=== PATIENT | female | born 1990 | race Caucasian/White ===

== ENCOUNTER 2024-06-29 22:48 | Emergency (ER) | payer MEDICAID, SELFPAY ==
[2024-06-29 22:53] VITALS: BP 138/77; PULSE 82; RESP 20; TEMP 37.2; O2SAT 99; BMI 23.4
--- NOTE | 2024-06-29 23:03 | W.ED.ABDPA2 ---
HPI - Abdominal Pain General: Chief Complaint: Abdominal Pain Stated Complaint: ABD PAIN Time Seen by Provider: 06/29/24 22:50 History of Present Illness: Patient presents to the ER [facility] with complaint of right lower quadrant abdominal pain that sharp stabbing in nature its intermittent. It started about 8 PM tonight. Patient is never had this pain before she does not have anything that will make it come on or go away but does this on its own. Patient's only abdominal surgery is a tubal. Patient denies any nausea vomiting diarrhea constipation pain burning frequency with urination. Related Data Previous Rx's ?Medication ?Instructions ?Recorded clotrimazole 1 % topical cream 1 applic topical BID 2 weeks #15 06/11/24 grams hydroxyzine HCl 25 mg tablet 25 mg PO BID PRN anxiety or 06/20/24 allergies #60 tabs magnesium L-lactate 84 mg 84 mg PO .QHS PRN sleep and muscle 06/20/24 tablet,extended release cramps #30 tabs Allergies Allergy/AdvReac Type Severity Reaction Status Date / Time oxycodone (From OxyContin) Allergy Intermediate hives Verified 06/20/24 09:09 Review of Systems General: Reports: 10 or more systems reviewed and unremarkable except in HPI and below PFSH ED PFSH: Medical History Situational anxiety Insomnia Muscle cramps Social History Smoking and tobacco/nicotine status: current every day tobacco/nicotine user (vape) Physical Exam Const: COMMON NORMALS: no acute distress, average body habitus, patient oriented x3, no limitations, healthy appearing, alert and well nourished HENMT: COMMON NORMALS: normocephalic, atraumatic, hearing grossly normal bilaterally, external ears normal, Normal external nose present, moist oral mucous membranes and oropharynx normal HEAD & SCALP: normocephalic and atraumatic NOSE: Normal external nose present EXTERNAL EAR: Yes external ears normal Neck/C-Spine: COMMON NORMALS: no JVD Chest: COMMONS NORMALS: normal inspection of the chest and normal palpation of entire chest wall Resp: COMMON NORMALS: normal respiratory effort, No retractions, No use of accessory muscles and clear to auscultation bilaterally AUSCULTATION: clear to auscultation bilaterally Cardio: COMMON NORMALS: no JVD, regular rate, regular rhythm, S1 normal heart sound present, S2 normal heart sound present, No gallops present (Cardio), No clicks present (Cardio), No murmurs present (Cardio) and No rub (Cardio) RATE: regular rate RHYTHM: regular rhythm HEART SOUNDS: S1 normal heart sound present and S2 normal heart sound present GI: COMMON NORMALS: Normal to inspection, nondistended, normoactive bowel sounds present, Soft to palpation, No hepatosplenomegaly present and no masses; negative for non-tender (Tender to palpation over right lower quadrant) PALPATION: Yes Soft to palpation and Yes No hepatosplenomegaly present Neuro: COMMON NORMALS: patient oriented x3 SENSORIUM/ORIENTATION: Yes alert Course Vital Signs: Vital signs: Vital Signs Temperature 99 F 06/29/24 22:53 Pulse Rate 72 06/30/24 00:00 Respiratory Rate 16 06/30/24 00:00 Blood Pressure 113/68 06/30/24 00:00 Pulse Oximetry 100 06/30/24 00:00 Oxygen Delivery Me thod Room Air 06/30/24 00:00 MDM - Abdominal Pain Medical Decision Making Lab work as well as CT scans unremarkable. Patient be discharged back to the nursing home. Medical Records I reviewed the patient's medical records. Lab Data I reviewed the patient's lab results. 06/29/24 23:00 06/29/24 23:00 Labs/Radiology: Radiology Impressions Abdomen/Pelvis CT 06/29/24 23:22 IMPRESSION: 1. No bowel obstruction or inflammatory process associated with the bowel. 2. No free air. Small amount of free simple fluid in the pelvis. 3. No evidence of appendicitis. 4. Small bowel feces sign which can be seen in the setting small intestinal bacterial overgrowth (SIBO). Laboratory Results WBC 7.79 10^3/uL (3.29-11.43) 06/29/24 23:00 RBC 4.56 10^6/uL (3.85-5.65) 06/29/24 23:00 Hgb 13.50 g/dL (11.27-16.99) 06/29/24 23:00 Hct 41.5 % (36-47) 06/29/24 23:00 MCV 91.0 fl (85-98) 06/29/24 23:00 MCH 29.6 pg (27-33) 06/29/24 23:00 MCHC 32.5 g/dL (30-55) 06/29/24 23:00 RDW 12.8 % (12.1-15.1) 06/29/24 23:00 Plt Count 240 10^3/cmm (157-399) 06/29/24 23:00 MPV 11.5 fL (7.4-10.4) H 06/29/24 23:00 Neut % (Auto) 63.8 % 06/29/24 23:00 Lymph % (Auto) 28.1 % 06/29/24 23:00 [facility] % (Auto) 5.4 % 06/29/24 23:00 Eos % (Auto) 1.9 % 06/29/24 23:00 Baso % (Auto) 0.5 % 06/29/24 23:00 Neut # (Auto) 4.97 10^3/uL (1.8-7.7) 06/29/24 23:00 Lymph # (Auto) 2.2 10^3/uL (0.8-4.8) 06/29/24 23:00 [facility] # (Auto) 0.4 10^3/uL (0.2-0.9) 06/29/24 23:00 Eos # (Auto) 0.2 10^3/uL (0.0-0.8) 06/29/24 23:00 Baso # (Auto) 0.0 10^3/uL (0.0-0.1) 06/29/24 23:00 Nucleated RBC % (auto) 0 % 06/29/24 23:00 Nucleated RBCs # 0.0 /100WBC 06/29/24 23:00 Sodium 138 mmol/L (136-145) 06/29/24 23:00 Potassium 4.0 mmol/L (3.5-5.1) 06/29/24 23:00 Chloride 103 mmol/L (98-107) 06/29/24 23:00 Carbon Dioxide 26 mmol/L (22-29) 06/29/24 23:00 Anion Gap 13.0 (5-19) 06/29/24 23:00 BUN 14 mg/dL (6-20) 06/29/24 23:00 Creatinine 0.6 mg/dL (0.5-0.9) 06/29/24 23:00 GFR Calculation 113.1 mL/min (90-130) 06/29/24 23:00 Glucose 103 mg/dL (65-115) 06/29/24 23:00 Calculated Osmolality 287 mOsm/kg (285-295) 06/29/24 23:00 Calcium 9.3 mg/dL (8.5-10.5) 06/29/24 23:00 Total Bilirubin 0.3 mg/dL (0.15-1.2) 06/29/24 23:00 AST 29 U/L (0-32) 06/29/24 23:00 ALT 62 U/L (0-33) H 06/29/24 23:00 Alkaline Phosphatase 78 U/L (35-105) 06/29/24 23:00 Total Protein 8.3 g/dL (6.6-8.7) 06/29/24 23:00 Albumin 4.4 g/dL (3.5-5.2) 06/29/24 23:00 Globulin 3.9 g/dL (1.3-4.6) 06/29/24 23:00 Lipase 17 U/L (13-60) 06/29/24 23:00 HCG, Qual Negative (Negative) 06/29/24 23:00 Urine Color Yellow (Yellow) 06/29/24 23:37 Urine Appearance Clear (CLEAR) 06/29/24 23:37 Urine pH 7 (5-7) 06/29/24 23:37 Ur Specific [place] 1.005 (1.005-1.030) 06/29/24 23:37 Urine Protein Neg (Negative) 06/29/24 23:37 Urine Glucose (UA) Norm (Normal) 06/29/24 23:37 Urine Ketones Negative (Negative) 06/29/24 23:37 Urine Blood Neg (Negative) 06/29/24 23:37 Urine Nitrate Negative (Negative) 06/29/24 23:37 Urine Bilirubin Neg (Negative) 06/29/24 23:37 Urine Urobilinogen Norm mg/dL (Negative) 06/29/24 23:37 Ur Leukocyte Esterase Negative (Negative) 06/29/24 23: Amorphous Sediment Not Reportable 06/29/24 23:37 All radiology interpretation(s) finalized by discharge Discharge Plan Discharge Patient Disposition: Home Clinical Impression: Abdominal pain Qualifiers: Abdominal location: right lower quadrant Qualified Code(s): R10.31 - Right lower quadrant pain Condition: Stable Prescriptions: No Action clotrimazole 1 % cream 1 applic topical BID 14 Days Qty: 15 1RF magnesium L-lactate 84 mg tablet extended release 84 mg PO .QHS PRN (Reason: sleep and muscle cramps) Qty: 30 2RF hydroxyzine HCl 25 mg tablet 25 mg PO BID PRN (Reason: anxiety or allergies) Qty: 60 1RF Discharge Orders: Discharge ED (Routine); Ordered 06/30/24 Ordered By: Gilberto Thomson Patient Instructions: Abdominal Pain (ED) Activity Restrictions/Additional Instructions: Thank you for choosing [facility] for your healthcare needs today. Please realize that you were seen in the emergency department and that we are providing you with an emergency medical screening exam and this may not be a complete and all exclusive of all testing and/or medical workup we may need to determine your element or severity of your illness. It is very important that you follow-up as instructed with your primary care provider or specialist for the additional evaluation and to discuss your medical treatment plan. You may return to the emergency department should you have concerns or if your condition changes or worsens in any way. Print Language: [place] Citizen Coding Level of Care Code ED Outreach Clinician for Bola Yuan
[2024-06-29 23:05] LABS: Basophils % 0.5 %; Eosinophils # 0.2 10^3/uL (0.0-0.8); Eosinophils % 1.9 %; Hematocrit 41.5 % (36-47); Lymphocytes # 2.2 10^3/uL (0.8-4.8); Lymphocytes % 28.1 %; Mean Corpuscular HGB Conc 32.5 g/dL (30-55); Mean Corpuscular Hemoglobin 29.6 pg (27-33); Mean Platelet Volume 11.5 fL (7.4-10.4); Monocytes # 0.4 10^3/uL (0.2-0.9); Monocytes % 5.4 %; Neutrophils # 4.97 10^3/uL (1.8-7.7); Neutrophils % 63.8 %; Nucleated Red Blood Cells % 0 %; Platelet Count 240 10^3/cmm (157-399); Red Blood Count 4.56 10^6/uL (3.85-5.65); Red Cell Distribution Width 12.8 % (12.1-15.1); White Blood Count 7.79 10^3/uL (3.29-11.43)
[2024-06-29 23:20] LABS: HCG, Serum Qual Negative (Negative)
[2024-06-29 23:22] LABS: Alanine Aminotransferase 62 U/L (0-33); Albumin Level 4.4 g/dL (3.5-5.2); Alkaline Phosphatase 78 U/L (35-105); Aspartate Amino Transferase 29 U/L (0-32); Blood Urea Nitrogen 14 mg/dL (6-20); Calcium 9.3 mg/dL (8.5-10.5); Carbon Dioxide 26 mmol/L (22-29); Chloride 103 mmol/L (98-107); Globulin 3.9 g/dL (1.3-4.6); Glomerular Filtration Rate 113.1 mL/min (90-130); Glucose 103 mg/dL (65-115); Lipase 17 U/L (13-60); Osmolality Calculated 287 mOsm/kg (285-295); Sodium 138 mmol/L (136-145); Total Bilirubin 0.3 mg/dL (0.15-1.2); Total Protein 8.3 g/dL (6.6-8.7)
--- NOTE | 2024-06-29 23:22 | CTR_ITS ---
PROCEDURE INFORMATION: Exam: CT Abdomen And Pelvis With Contrast Exam date and time: 06/29/2024 11:48 PM Age: 34 years old Clinical indication: Abdominal pain; Localized; Right lower quadrant (rlq); Prior surgery; Surgery date: 6+ months; Surgery type: Tubal ligation; C/O rlq pain; Additional info: Right lower quadrant intermittent stabbing pain TECHNIQUE: Imaging protocol: Computed tomography of the abdomen and pelvis with contrast. Radiation optimization: All CT scans at this facility use at least one of these dose optimization techniques: automated exposure control; mA and/or kV adjustment per patient size (includes targeted exams where dose is matched to clinical indication); or iterative reconstruction. Contrast material: OMNI 350; Contrast volume: 100 ml; Contrast route: INTRAVENOUS (IV); COMPARISON: CR XR chest 1V [id number] 07/01/2018 10:17 PM RADIATION DOSE METRICS: Total DLP (mGy-cm): 351.44 FINDINGS: Liver: Normal. No mass. Gallbladder and biliary ducts: Normal. No calcified stones. No ductal dilation. Pancreas: Normal. No ductal dilation. Spleen: Normal. No splenomegaly. Adrenal glands: Normal. No mass. Kidneys and ureters: Normal. No hydronephrosis. Stomach and bowel: Small bowel feces sign which can be seen in the setting small intestinal bacterial overgrowth (SIBO). No obstruction. No mucosal thickening. Appendix: No evidence of appendicitis. Intraperitoneal space: Unremarkable. No free air. No significant fluid collection. Vasculature: Unremarkable. No abdominal aortic aneurysm. Lymph nodes: Unremarkable. No enlarged lymph nodes. Urinary bladder: Unremarkable as visualized. Reproductive: Unremarkable as visualized. Bones/joints: Levoscoliosis of the thoracolumbar spine. Soft tissues: Unremarkable. CT/CT abdomen pelvis w con* [id number] IMPRESSION: 1. No bowel obstruction or inflammatory process associated with the bowel. 2. No free air. Small amount of free simple fluid in the pelvis. 3. No evidence of appendicitis. 4. Small bowel feces sign which can be seen in the setting small intestinal bacterial overgrowth (SIBO).
[2024-06-29 23:29] VITALS: BP 113/84; PULSE 68; RESP 16; O2SAT 100
[2024-06-29 23:41] LABS: Add Urine Microscopic? NO
[2024-06-29 23:50] LABS: Add Urine Culture? No; Bilirubin Urine Neg (Negative); Blood Urine Neg (Negative); Charge for UA Resulting for Rev; Glucose Urine UA Norm (Normal); Ketones Urine Negative (Negative); Leukocyte Esterase Urine Negative (Negative); Nitrate Urine Negative (Negative); Protein Urine Neg (Negative); Specific Gravity, Urine 1.005 (1.005-1.030); Urine Appearance Clear (CLEAR); Urine Color Yellow (Yellow); Urobilinogen Urine Norm (Negative); pH Urine 7 (5-7)
[2024-06-29] MEDS: iohexol 350 mg/mL 500 mL Btl (per mL) IV (23:51)
[2024-06-30] VITALS: BP 113/68; PULSE 72; RESP 16; O2SAT 100
[2024-06-30 01:06] VITALS: BP 104/78; PULSE 89; RESP 20; O2SAT 98
== END 2024-06-30 01:09 | disposition home or self-care (01) ==
PROVIDERS: Physician Assistant; Emergency Provider Emergency Medicine
DX: R10.31 Right lower quadrant pain (principal); F17.290 Nicotine dependence, other tobacco product, uncomplicated
CPT/HCPCS: 12345; 36415; 74177; 80053; 81003; 83690; 84703; 85025; 99285